=== PATIENT | female | born 1995 | race Caucasian/White ===

== ENCOUNTER 2022-06-29 12:57 | Emergency (ER) | payer OTHER | END 2022-06-29 13:55 | disposition home or self-care (01) | LOC: CSHERS 12:57 | DX: K04.7 Periapical abscess without sinus (principal); R22.0 Localized swelling, mass and lump, head; K02.9 Dental caries, unspecified | CPT/HCPCS: 99282 ==

== ENCOUNTER 2023-03-01 22:12 | Emergency (ER) | payer OTHER ==
[2023-03-01 23:06] LABS: #Eosinphils 0.3 10x3/uL (0.0-0.5); #Monocytes 0.7 10x3/uL (0.0-1.1); #Neutrophils 8.1 10x3/uL (1.5-8.4); %Basophils 0.2 % (0.0-2.0); %Eosinophils 2.3 % (0.0-6.0); %Monocytes 5.7 % (0.0-10.0); %Neutrophils 67.3 % (40.0-75.0); Hemoglobin 12.7 g/dL (12.0-15.5); Mean Corpuscular HGB CONC 33.9 g/dL (32.0-36.0); Mean Corpuscular Hemoglobin 29.2 pg (27.0-33.0); Mean Corpuscular Volume 86.2 fl (81.6-98.3); Mean Platelet Volume 9.4 fl (7.4-10.4); Platelet Count 259 10x3/uL (150-450); RBC Distribution Width 12.5 % (11.5-14.5); Red Blood Cell (RBC) Count 4.35 10x6/uL (3.90-5.03)
[2023-03-02] MEDS ORDERED: Acetaminophen 500 MG TAB ONE (00:46)
== END 2023-03-02 00:56 | disposition home or self-care (01) ==
LOC: CSHERS 22:12
DX: O20.0 Threatened abortion (principal); O99.330 Smoking (tobacco) complicating pregnancy, unspecified trimester; F17.210 Nicotine dependence, cigarettes, uncomplicated; Z3A.00 Weeks of gestation of pregnancy not specified
CPT/HCPCS: 36415; 76856; 84702; 86850; 86900; 86901